=== PATIENT | male | born 1940 | race Caucasian/White ===

== ENCOUNTER → 2017-01-03 | Outpatient (CLI) | payer MEDICARE ==
[~2017-01-03] MED LIST: NORFLEX100 MG PO; VICODIN 5/500 505 MG PO
[2017-01-03 08:05] LABS: BASO # 0.1 10*3/uL (0.0-0.1); BASO % 1.3 % (0.0-1.0); EOS # 0.4 10*3/uL (0.0-0.4); EOS % 7.9 % (1.0-4.0); HEMATOCRIT 41.2 % (42.0-52.0); LYMPH # 1.5 10*3/uL (1.3-4.4); LYMPH % 28.1 % (27.0-41.0); MEAN CELL VOLUME 87.5 fl (80.0-94.0); MEAN CORPUSCULAR HGB 29.7 pg (27.0-31.0); MEAN PLATELET VOLUME 10.1 fl (9.6-12.3); MONO # 0.7 10*3/uL (0.1-1.0); MONO % 12.6 % (3.0-9.0); NEUT # 2.7 10*3/uL (2.3-7.9); NEUT % 49.9 % (47.0-73.0); PLATELET COUNT AUTOMATED 241 10*3/uL (130-400); RED BLOOD COUNT 4.71 10*6/uL (4.50-5.90); RED CELL DISTRI WIDTH 13.6 % (0-14.5); WHITE BLOOD COUNT 5.4 10*3/uL (4.8-10.8)
[2017-01-03 08:27] LABS: HEMOGLOBIN A1c 6.1 % (4.8-5.6)
[2017-01-03 08:46] LABS: ALBUMIN 3.8 gm/dl (3.1-4.5); BILIRUBIN, DIRECT 0.1 mg/dL (0.0-0.2); BUN 21 mg/dl (7-24); CARBON DIOXIDE 27 mmol/L (21-32); CHLORIDE 108 mmol/L (98-107); CHOLESTEROL 197 mg/dL (<200); EST GLOM FILT AFRICAN AMERICAN > 60 ml/min; GLUCOSE 98 mg/dL (65-99); POTASSIUM 4.1 mmol/L (3.5-5.1); SGOT/AST 13 IU/L (3-35); SGPT/ALT 17 U/L (12-78); SODIUM 142 mmol/L (136-145)
[2017-01-03 08:53] LABS: ALKALINE PHOSPHATASE 46 U/L (45-117); BILIRUBIN, TOTAL 0.6 mg/dl (0.2-1.0); HDL CHOLESTEROL 65 mg/dl (40-60); LDL CHOLESTEROL 113 mg/dL (9-159); TOTAL PROTEIN 6.9 gm/dL (6.4-8.2); TRIGLYCERIDES 97 mg/dl (<150); VLDL CHOLESTEROL 19 mg/dL (6-40)
== END | disposition home or self-care (01) ==
LOC: LAB 07:23
PROVIDERS: Family Medicine
DX: Z12.5 Encounter for screening for malignant neoplasm of prostate (principal); E03.9 Hypothyroidism, unspecified; I10 Essential (primary) hypertension; R73.9 Hyperglycemia, unspecified

== ENCOUNTER → 2017-01-22 | Outpatient (CLI) | payer MEDICARE | END | disposition home or self-care (01) | LOC: LAB 10:16 | DX: E83.51 Hypocalcemia (principal) ==

== ENCOUNTER → 2017-05-14 | Outpatient (CLI) | payer MEDICARE | END | disposition home or self-care (01) | LOC: LAB 14:28 | DX: E55.9 Vitamin D deficiency, unspecified (principal) ==

== ENCOUNTER → 2017-07-24 | Outpatient (CLI) | payer MEDICARE ==
[2017-07-24 09:15] LABS: BASO # 0.1 10*3/uL (0.0-0.1); BASO % 1.9 % (0.0-1.0); EOS # 0.5 10*3/uL (0.0-0.4); EOS % 9.4 % (1.0-4.0); HEMATOCRIT 41.7 % (42.0-52.0); LYMPH # 1.4 10*3/uL (1.3-4.4); LYMPH % 26.1 % (27.0-41.0); MEAN CELL VOLUME 88.7 fl (80.0-94.0); MEAN CORPUSCULAR HGB 29.8 pg (27.0-31.0); MEAN CORPUSCULAR HGB CONC 33.6 g/dl (33.0-37.0); MEAN PLATELET VOLUME 10.4 fl (9.6-12.3); MONO # 0.6 10*3/uL (0.1-1.0); MONO % 11.3 % (3.0-9.0); NEUT # 2.7 10*3/uL (2.3-7.9); NEUT % 51.1 % (47.0-73.0); PLATELET COUNT AUTOMATED 220 10*3/uL (130-400); RED CELL DISTRI WIDTH 14.1 % (0-14.5); WHITE BLOOD COUNT 5.2 10*3/uL (4.8-10.8)
[2017-07-24 09:39] LABS: ALBUMIN 3.9 gm/dl (3.1-4.5); BILIRUBIN, DIRECT 0.1 mg/dL (0.0-0.2); BUN 22 mg/dl (7-24); CHLORIDE 106 mmol/L (98-107); CREATININE 1.14 mg/dL (0.70-1.30); POTASSIUM 4.2 mmol/L (3.5-5.1); SGOT/AST 9 IU/L (3-35); SGPT/ALT 17 U/L (12-78); SODIUM 141 mmol/L (136-145); THYROXINE (T4) TOTAL 10.2 ug/dl (4.5-12.1); TOTAL PROTEIN 7.1 gm/dL (6.4-8.2)
[2017-07-24 09:48] LABS: ALKALINE PHOSPHATASE 44 U/L (45-117)
== END ==
LOC: LAB 08:34
PROVIDERS: Family Medicine
DX: F41.9 Anxiety disorder, unspecified (principal); R73.9 Hyperglycemia, unspecified; E55.9 Vitamin D deficiency, unspecified

== ENCOUNTER 2017-11-04 23:48 | Inpatient (IN) | payer MEDICARE ==
[~2017-11-04] VITALS: Ht 170.1 cm; Wt 70.9 kg
[2017-11-04 23:56] VITALS: BP 156/72
[2017-11-05] MEDS ORDERED: ROPINIROLE HYDRO2 M2 PO (00:09)
[2017-11-05] MEDS ORDERED: PANTOPRAZOLE SO40 MG PO (00:09)
[2017-11-05] MEDS ORDERED: LEVOTHYROXINE50 MCG PO (00:09)
[2017-11-05] MEDS ORDERED: LISINOPRIL10 M1 PO (00:09)
[2017-11-05 00:30] LABS: BASO # 0.1 10*3/uL (0.0-0.1); BASO % 0.9 % (0.0-1.0); EOS # 0.5 10*3/uL (0.0-0.4); EOS % 4.8 % (1.0-4.0); HEMATOCRIT 40.4 % (42.0-52.0); HEMOGLOBIN 13.5 g/dl (14.0-18.0); LYMPH # 1.8 10*3/uL (1.3-4.4); LYMPH % 17.7 % (27.0-41.0); MEAN CELL VOLUME 88.6 fl (80.0-94.0); MEAN CORPUSCULAR HGB 29.6 pg (27.0-31.0); MEAN CORPUSCULAR HGB CONC 33.4 g/dl (33.0-37.0); MEAN PLATELET VOLUME 10.1 fl (9.6-12.3); MONO # 0.8 10*3/uL (0.1-1.0); MONO % 8.3 % (3.0-9.0); NEUT # 6.8 10*3/uL (2.3-7.9); NEUT % 67.8 % (47.0-73.0); PLATELET COUNT AUTOMATED 226 10*3/uL (130-400); RED BLOOD COUNT 4.56 10*6/uL (4.50-5.90); RED CELL DISTRI WIDTH 13.8 % (0-14.5); WHITE BLOOD COUNT 10.1 10*3/uL (4.8-10.8)
[2017-11-05 00:38] LABS: ACT PARTIAL THROMBO TIME 21.9 SECONDS (20.8-31.5)
[2017-11-05 00:44] LABS: ALBUMIN 3.6 gm/dl (3.1-4.5); ALKALINE PHOSPHATASE 41 U/L (45-117); BUN 23 mg/dl (7-24); CHLORIDE 105 mmol/L (98-107); CREATININE 1.11 mg/dL (0.70-1.30); POTASSIUM 3.7 mmol/L (3.5-5.1); SGOT/AST 14 IU/L (3-35); SGPT/ALT 18 U/L (12-78); SODIUM 140 mmol/L (136-145); TOTAL PROTEIN 6.7 gm/dL (6.4-8.2)
[2017-11-05 00:45] LABS: TROPONIN I < 0.015 ng/ml (<0.045)
[2017-11-05 01:18] VITALS: BP 142/65
[2017-11-05 02:17] VITALS: BP 148/73
[2017-11-05 02:35] VITALS: BP 157/70
[2017-11-05] MEDS ORDERED: ASPIRIN ADULT L81 MG PO (03:08)
[2017-11-05] MEDS ORDERED: CALCIUM500 M1 PO (03:09)
[2017-11-05] MEDS ORDERED: VITAMIN D5000 UNI1 PO (03:11)
[2017-11-05 08:26] VITALS: BP 146/85
[2017-11-05 09:53] LABS: BILIRUBIN NEGATIVE (NEGATIVE); BLOOD NEGATIVE (NEGATIVE); CLARITY CLEAR (CLEAR); COLOR YELLOW (YELLOW); GLUCOSE NEGATIVE (NEGATIVE); KETONE NEGATIVE (NEGATIVE); LEUKO ESTERASE NEGATIVE (NEGATIVE); NITRITE NEGATIVE (NEGATIVE); PH 5.5 (5.0-9.0); SPECIFIC GRAVITY 1.025 (1.005-1.030); UROBILINOGEN 0.2 E.U./dl (0.2-1.0)
[2017-11-05 10:11] LABS: WBC 0-2 wbc/hpf (0-5)
[2017-11-05 12:00] VITALS: BP 140/73
[2017-11-05 16:00] VITALS: BP 126/64
== END 2017-11-05 18:18 | disposition home or self-care (01) | DRG 312 ==
LOC: ED 23:48 → EDHOLD 11-05 01:55 → 5E 11-05 02:10
PROVIDERS: Student in an Organized Health Care Education/Training Program
DX: R55 Syncope and collapse (principal); D72.1 Eosinophilia; E87.2 Acidosis; D64.9 Anemia, unspecified; R00.1 Bradycardia, unspecified; D72.810 Lymphocytopenia; R73.9 Hyperglycemia, unspecified; I10 Essential (primary) hypertension; F41.9 Anxiety disorder, unspecified; K21.9 Gastro-esophageal reflux disease without esophagitis; E03.9 Hypothyroidism, unspecified; Z79.82 Long term (current) use of aspirin; Z79.899 Other long term (current) drug therapy; Z80.52 Family history of malignant neoplasm of bladder; T42.8X5A Adverse effect of antiparkinsonism drugs and other central muscle-tone depressants, initial encounter

== ENCOUNTER → 2020-02-22 | Outpatient (CLI) | payer MEDICARE ==
[~2020-02-22] MED LIST changes: +ASPIRIN ADULT L81 MG PO; +CALCIUM500 M1 PO; +LEVOTHYROXINE50 MCG PO; +LISINOPRIL10 M1 PO; +PANTOPRAZOLE SO40 MG PO; +ROPINIROLE HYDRO2 M2 PO; +VITAMIN D5000 UNI1 PO
== END | disposition home or self-care (01) ==
LOC: LAB 09:03
DX: N40.1 Benign prostatic hyperplasia with lower urinary tract symptoms (principal)

== ENCOUNTER → 2021-02-09 | Outpatient (CLI) | payer MEDICARE | END | disposition home or self-care (01) | LOC: LAB 10:23 | PROVIDERS: ATTEND Urology | DX: N40.1 Benign prostatic hyperplasia with lower urinary tract symptoms (principal) ==

== ENCOUNTER → 2022-02-01 | Outpatient (CLI) | payer MEDICARE | END | disposition home or self-care (01) | LOC: LAB 13:24 | PROVIDERS: ATTEND Urology | DX: N40.1 Benign prostatic hyperplasia with lower urinary tract symptoms (principal) ==

== ENCOUNTER → 2022-04-11 | Outpatient (CLI) | payer MEDICARE | END | disposition home or self-care (01) | LOC: CT 14:56 | PROVIDERS: ATTEND Physician Assistant | DX: I67.82 Cerebral ischemia (principal) ==

== ENCOUNTER → 2022-05-23 | Outpatient (CLI) | payer MEDICARE ==
[2022-05-23 15:09] LABS: CREATININE 1.31 mg/dL (0.70-1.30)
== END | disposition home or self-care (01) ==
LOC: LAB 14:40 → MRI 15:00
PROVIDERS: Radiology Diagnostic Radiology; ATTEND Physician Assistant
DX: G93.89 Other specified disorders of brain (principal); R53.1 Weakness

== ENCOUNTER → 2022-06-29 | Outpatient (CLI) | payer MEDICARE ==
[2022-06-29 09:29] LABS: THYROID STIM HORMONE (HS) 3.37 uIU/ml (0.358-4.75)
== END | disposition home or self-care (01) ==
LOC: LAB 08:37
PROVIDERS: ATTEND Psychiatry & Neurology Neurology
DX: Z79.899 Other long term (current) drug therapy (principal)

== ENCOUNTER 2024-02-19 13:45 | Inpatient (IN) | payer OTHER ==
[~2024-02-19] VITALS: Ht 170.2 cm; Wt 62.6 kg
[~2024-02-19 13:45] MED LIST changes: +AMANTADINE HCL100 M1 PO; +CALCIUM 1,0001 EAC3 PO; +CARBIDOPA-LEVO1 EAC6 PO; +DONEPEZIL HYDROC5 MG PO; +DOXYCYCLINE HY100 M3 PO; +FLOMAX0.4 MG PO; +FOAM BANDAGE 1 EACH BANDAGE T ONE; +FOAM BANDAGE HEEL T ONE; +HYDROCODONE-AC1 EAC1 PO; +LISINOPRIL20 MG PO; +MELOXICAM7.5 MG PO; +NEURONTIN300 MG PO; +NORVASC5 MG PO; +OCUVITE ADULT1 EAC3 PO; +VESICARE5 MG PO; +XARELTO1 EACH PO; +ZOLOFT50 MG PO; +ZYRTEC10 M2 PO
[2024-02-19 13:50] VITALS: BP 169/80
[2024-02-19] MEDS ORDERED: ATROPINE SULFATE 1% 2 ML BOTTLE SL PRN (15:35)
[2024-02-19] MEDS ORDERED: DIAZEPAM 10 MG/2 ML SYR IV PRN (15:40)
[2024-02-19] MEDS ORDERED: MORPHINE Sulfate 2 MG/ML SYR IV PRN (15:40)
[2024-02-19 16:00] VITALS: BP 168/73
[2024-02-19 20:00] VITALS: BP 154/57
[2024-02-20] VITALS: BP 152/66
[2024-02-20 08:00] VITALS: BP 149/53
[2024-02-20] MEDS ORDERED: DIAZEPAM 10 MG/2 ML SYR IV ONE (10:55)
[2024-02-20 16:00] VITALS: BP 126/62
[2024-02-20] MEDS ORDERED: fentaNYL CITRATE 1,000 MCG in SODIUM CHLORIDE 0.9% 230 ML IV SCH (18:00)
[2024-02-20] MEDS ORDERED: SODIUM CHLORIDE 0.9% 1,000 ML IV ONE (18:30)
[2024-02-20] MEDS ORDERED: FOAM BANDAGE 5X5 T ONE (21:15)
[2024-02-21] VITALS: BP 142/60
[2024-02-21 08:00] VITALS: BP 166/62
[2024-02-21] MEDS ORDERED: ACETAMINOPHEN 650 MG SUPP R PRN (10:15)
[2024-02-21 12:00] VITALS: BP 124/54
[2024-02-21 16:00] VITALS: BP 138/62
[2024-02-21 20:00] VITALS: BP 138/59
[2024-02-21] MEDS ORDERED: SODIUM CHLORIDE 0.9% 1,000 ML IV ONE (23:51)
[2024-02-22] VITALS: BP 163/46
[2024-02-22 08:00] VITALS: BP 169/92
[2024-02-22 16:00] VITALS: BP 142/49
[2024-02-22 20:00] VITALS: BP 100/41
[2024-02-22] MEDS ORDERED: SODIUM CHLORIDE 0.9% 1,000 ML IV ONE (21:30)
[2024-02-23] VITALS: BP 110/43
[2024-02-23 08:00] VITALS: BP 126/45
[2024-02-23] MEDS ORDERED: MORPHINE Sulfate 2 MG/ML SYR IV ONE (11:35)
== END 2024-02-23 12:42 | DRG 179 ==
LOC: 4E 13:45
PROVIDERS: ADMIT Student in an Organized Health Care Education/Training Program; ATTEND Student in an Organized Health Care Education/Training Program
DX: J69.0 Pneumonitis due to inhalation of food and vomit (principal); D64.9 Anemia, unspecified; Z51.5 Encounter for palliative care; F41.9 Anxiety disorder, unspecified; I10 Essential (primary) hypertension; K21.9 Gastro-esophageal reflux disease without esophagitis; E03.9 Hypothyroidism, unspecified; G20.B2 Parkinson's disease with dyskinesia, with fluctuations; N40.1 Benign prostatic hyperplasia with lower urinary tract symptoms; R39.11 Hesitancy of micturition; Z96.642 Presence of left artificial hip joint; D72.825 Bandemia; R73.9 Hyperglycemia, unspecified; Z66 Do not resuscitate